=== PATIENT | female | born 1960 | race Asian ===

== ENCOUNTER 2016-07-14 10:48 | Inpatient (IN) | payer OTHER ==
--- NOTE | 2016-07-09 19:16 | PCM.HPSURG ---
Subjective Date of Service: Jul 06, 2016 Referring Provider: Admitting Physician: Primary Care Physician: Robbie Jean MD Attending Physician: Mode Ferguson MD Chief Complaint SEE BELOW History of Present Illness Patient: Khoa Scott Date of : 1960 Visit Type: Pre Op Visit Date: 07/06/2016 09:45 AM This 56 year old female presents for Preop C4-7 ACDF, Cage, BMA and & Plating. History of Present Illness: 1. Preop C4-7 ACDF, Cage, BMA, & Plating Khoa scott is a 56 year old female referred by Neurologist Dr. Channing Bradford MD with Primary Care Provider (PCP) Dr. Parrish Jean DO, who presents today's date 07/06/2016 for a rescheduled surgery & repeat preoperative type of appointment concerning the decision for surgery involving C4-5, C5-6, & C6-7 anterior cervical discectomy and fusion, with cages, iliac crest bone marrow aspiration, & anterior cervical plating from C4-7 secondary to a diagnosis of cervical stenosis of the spinal canal with related complaints of severe, intractable, and debilitating headache, neck spasm referred to the lower back, & pain radiating to the bilateral shoulders, upper & lower extremities worse on the right side with numbness, paresthesias, dysesthesias, cramping, & weakness; including related difficulty with ambulation, balance, coordination, fine motor manipulation, unsteadiness of gait, & bladder spasticity. The patient was last seen for preoperative appointment on 06/03/2016, after which she developed acute sinusitis with shortness of breath, asthma exacerbation, & consequently her previous surgery was canceled. The patient was then treated by her PCP & medically authorized to reschedule for surgery. The patient was last seen by Dr. Moed Ferguson M.D. on 05/19/2016 presenting with symptomatic cervical myeloradiculopathy as before. She was seen prior for Neurosurgical consultation by Gregorio Kuo PA-C on 05/01/2016 with chief complaints of constant frequency taking & throbbing headache, neck spasm referred to the lower back, & pain radiating diffusely to the bilateral shoulders, upper & lower extremities worse on the right side with numbness, paresthesias, dysesthesias, cramping, & weakness; aggravated by fixed prolonged cervical flexion or extension positioning & improved only transiently with rest , activity modification, medical management & therapeutic modalities; worsening over the last several years. The patient also complains a related difficulty with ambulation, balance, coordination, fine motor manipulation, unsteadiness of gait, & bladder spasticity. Incidentally, the has also received interventional treatment from Dr. Bart Schumacher M.D., PhD for lumbar facet arthropathy, sacroiliitis, & piriformis syndrome with limited relief. According to Dr. Mode Ferguson M.D. the patient has an MRI spine that demonstrated cervical spondylosis with disc & osteophyte protrusion causing spinal stenosis with spinal cord compression at C4-5, C5-6, & C6-7. He also reported bilateral foraminal narrowing at multiple levels. Consequently the patient has symptomatic cervical spinal stenosis causing myelopathy; therefore neurosurgical decompression, fusion, & instrumented stabilization is indicated. Dr. Ferguson & the patient discussed all the risks and benefits associated with procedure as well as reasonable expectations with regards to surgical outcomes & the patient elected to proceed with surgery as planned. The patient denies any related complete or acute loss of control of bowel or bladder function, saddle paresthesia or anesthesia. The patient has a reported pertinent past medical, surgical, family & social history for right shoulder surgery for rotator cuff repair & acromioplasty, tubal ligation (involving difficult postoperative anesthesia) , & lump removal, asthma (controlled), thyroid dysfunction, osteoarthritis, fibromyalgia, history of diarrhea/constipation, nocturia, stress incontinence, chronic joint pain, & frequent headaches with no other than above known positive history &/or review of all other organ systems. The patient's related complaints have been a serious detriment to their happiness and activities of daily living. Having failed conservative treatment the patient presents today for their decision for surgery appointment involving C4-5, C5-6, & C6-7 anterior cervical discectomy and fusion, with cages, iliac crest bone marrow aspiration, & anterior cervical plating from C4-7 for treatment of cervical stenosis of the spinal canal; related to severe, intractable, and debilitating headache, neck spasm referred to the lower back, & pain radiating to the bilateral shoulders, upper & lower extremities worse on the right side with numbness, paresthesias, dysesthesias, cramping, & weakness; including related difficulty with ambulation, balance, coordination, fine motor manipulation, unsteadiness of gait, & bladder spasticity. The procedure is scheduled to be performed by Dr. Mode Ferguson M.D. on 07/14/2016 ANESTHESIA NOTE: Anesthesia preoperative consultation requested for review of the patient's PCP office medical clearance for surgery. The patient reports significant nausea with narcotics although she has a fatty liver & elevated liver enzymes therefore low-dose oxycodone will be used & treated with antiemetics as needed. She will also be evaluated postoperatively by Respiratory Therapy because of mild regular asthma. Problem List: Problem Description Asthma exacerbation Medical/Surgical/Interim History Reviewed, no change. Last detailed document date:07/06/2016. Family History: Reviewed, no changes. Last detailed document date:07/06/2016. Social History (Reviewed, updated) 07/06/2016 Tobacco use reviewed. Preferred language is German. The patient does not need an invoice classification clerk. Smoking status: Former smoker. Smoking Status Use Status Type Smoking Status Years Used Total Pack Years yes Cigarette Former smoker Cessation Type Date Quit Longest Tobacco Free Cessation Method Cigarette 04/12/2012 CAFFEINE The patient uses caffeine: soda and coffee.. Allergies: Ingredient Reaction Medication Name Comment SHELLFISH DERIVED lips/mouth itchy AMPICILLIN hives, rash Reviewed, no changes. Review of Systems System Neg/Pos Details Neuro Positive Headache. Constitutional Negative Chills and fever. GI Negative Abdominal pain, constipation, diarrhea, nausea and vomiting. MS Negative Back pain, bone/joint symptoms and muscle weakness. Valentino/Lymph Negative Blood clots. Neuro Negative Dizziness and seizures. Negative Dysuria, urge incontinence and urinary incontinence. Respiratory Negative Dyspnea, apnea and wheezing. Eyes Negative Double vision and vision loss. Psych Negative Anxiety and depression. Integumentary Negative Mrsa and rash. Endocrine Negative Weight gain and weight loss. Cardio Negative Chest pain, irregular heartbeat/palpitations, leg swelling and pacemaker. ENMT Negative Hearing loss. Vital Signs Height Time ft in cm Last Measured Height Position % 9:34 AM 5.0 1.00 154.94 05/19/2016 Weight/BSA/BMI Time lb oz kg Context % BMI kg/m2 BSA m2 9:34 AM 150.00 68.039 dressed with shoes 28.34 Blood Pressure Time BP mm/Hg Position Side Site Method Cuff Size 9:34 AM 115/68 sitting left wrist automatic adult Temperature/Pulse/Respiration Time Temp F Temp C Temp Site Pulse/min Pattern Resp/ min 9:34 AM 98.6 37.0 88 regular Pain Scale Time Pain Score Method 9:34 AM 6/10 Numeric Pain Intensity Scale Measured By Time Measured by 9:34 AM German Davila MA Screening Summary:o Pain is described as 6/10. Evaluated pain score with Numeric Pain Intensity Scale. The following were reviewed: tobacco use, alcohol use and caffeine use Physical Exam Exam Findings Details Comments WD/WN, female who is AO x 3, cooperative,& appears to be in NAD w/ language & speech that is intact & fluent. There is no evidence of recent or remote memory impairment. The patient's knowledge is appropriate for age & level of education w/ a pleasant affect & euthymic mood. Ambulates w/ no difficulty. NC/AT, PERRL, EOMI, w/o facial droop, hearing grossly intact, nostrils patent, oral cavity and pharynx normal. Neck supple, w/o LAD or thyromegaly. Heart reveals RRR w/o audible murmurs Lungs CTAB Abdomen is NT/ND Cervical range of motion is moderately restricted in all directions. Neck nontender to palpation. Motor strength 5/5 bilateral deltoid, bicep, tricep, hand community health counselor, hand intrinsics. Reflexes 2+ bilateral biceps, triceps, brachioradialis, knee jerks, ankle jerks. No ankle clonus. Negative Ortiz's reflex. Sensation diminished pinprick in the radial aspect of the forearms and thumb and first 2 fingers of both hands bilaterally. Assessment/Plan # Detail Type Description 1. Assessment Cervical stenosis of spinal canal (M48.02). 2. Assessment Preoperative examination (Z01.818). Patient Plan We including your Attending Surgeon have discussed the risks and benefits associated your scheduled procedure which you have verbally acknowledged understanding including but not limited to the possibility of an outcome that we are unable to predict or was not mentioned. 1. You are scheduled for a C4-5, C5-6, & C6-7 anterior cervical discectomy and fusion, with cages, iliac crest bone marrow aspiration, & anterior cervical plating with Dr. Mode Ferguson M.D. at [facility] on 07/14/2016. 2. Check in time is 11:00 AM. Also please ignore instructions below if told otherwise by your preadmission nurse or if you do not take the medications listed below. 3. Nothing to eat after midnight the night before surgery. You may take all of your "approved" medications with small sips of water. Remember to take your a.m. hypertension medication if it is a beta jolene and ends in "olol. Otherwise ask your doctor if you need to hold your a.m. hypertension medication. 4. No aspirin, ibuprofen, Naprosyn, or other NSAIDs starting 7 days prior to surgery. 5. Please stop Warfarin/Coumadin or other blood thinners such as Plavix, Aggrenox, or Xarelto 7 days prior to your surgical procedure and follow specific instructions from your prescribing provider. 6. Please stop Lovenox bridging in the morning one day prior to procedure. 7. Please stop Suboxone/Buprenorphine at least 4 days prior to procedure. 8. Go to the hospital today to get her preoperative testing done. Take the order form to the surgery desk on the second floor of the hospital, [facility] (main entrance next to the emergency entrance). I will notify you if there is any test results that require further workup prior to surgery. 9. Follow the instructions you were given today, use the cleansing cloths the night before as well as the morning of her surgery. 10. If you are prescribed inhalers, CPAP or BiPAP machines you use at home bring along with you to the hospital. 11. ONLY If you take medications for Diabetes: If you have an insulin pump continue lowest (typically night-time) basal rate into the a.m. If you do not have a pump check h your a.m. blood sugar and hold insulin if BS less than 100. If you are taking long-acting, intermediate acting (NPH) or 70/30 preparation : Take half on day of procedure. If you are taking ultra long-acting insulin such as glargine, Lantus either at night or in the a.m. continue as scheduled ( including day of surgery). If you take short acting regular insulin (insulin not delivered via pump) discontinue on day of procedure. 12. Please call if you have any questions before your surgery: [phone]. Today's instructions/counseling include(s) Pre-operative instructions given to the patient and or legal bilingual sales representative(s) orally and in writing. 13. Our office will contact you if there are any test results that require further workup prior to surgery. Provider Plan We including your Attending Surgeon have discussed the risks and benefits associated your scheduled procedure which you have verbally acknowledged understanding including but not limited to the possibility of an outcome that we are unable to predict or was not mentioned. 1. You are scheduled for a C4-5, C5-6, & C6-7 anterior cervical discectomy and fusion, with cages, iliac crest bone marrow aspiration, & anterior cervical plating with Dr. Mode Ferguson M.D. at [facility] on 07/14/2016. 2. Check in time is 11:00 AM. Also please ignore instructions below if told otherwise by your preadmission nurse or if you do not take the medications listed below. 3. Nothing to eat after midnight the night before surgery. You may take all of your "approved" medications with small sips of water. Remember to take your a.m. hypertension medication if it is a beta jolene and ends in "olol. Otherwise ask your doctor if you need to hold your a.m. hypertension medication. 4. No aspirin, ibuprofen, Naprosyn, or other NSAIDs starting 7 days prior to surgery. 5. Please stop Warfarin/Coumadin or other blood thinners such as Plavix, Aggrenox, or Xarelto 7 days prior to your surgical procedure and follow specific instructions from your prescribing provider. 6. Please stop Lovenox bridging in the morning one day prior to procedure. 7. Please stop Suboxone/Buprenorphine at least 4 days prior to procedure. 8. Go to the hospital today to get her preoperative testing done. Take the order form to the surgery desk on the second floor of the hospital, [facility] (main entrance next to the emergency entrance). I will notify you if there is any test results that require further workup prior to surgery. 9. Follow the instructions you were given today, use the cleansing cloths the night before as well as the morning of her surgery. 10. If you are prescribed inhalers, CPAP or BiPAP machines you use at home bring along with you to the hospital. 11. ONLY If you take medications for Diabetes: If you have an insulin pump continue lowest (typically night-time) basal rate into the a.m. If you do not have a pump check h your a.m. blood sugar and hold insulin if BS less than 100. If you are taking long-acting, intermediate acting (NPH) or 70/30 preparation : Take half on day of procedure. If you are taking ultra long-acting insulin such as glargine, Lantus either at night or in the a.m. continue as scheduled ( including day of surgery). If you take short acting regular insulin (insulin not delivered via pump) discontinue on day of procedure. 12. Please call if you have any questions before your surgery: [phone]. Today's instructions/counseling include(s) Pre-operative instructions given to the patient and or legal bilingual sales representative(s) orally and in writing. 13. Our office will contact you if there are any test results that require further workup prior to surgery. The patient's history and examination as well as radiological findings were reviewed with Mode Ferguson M.D. and conveyed the patient in detail. The findings are consistent with cervical stenosis of the spinal canal and are most likely the cause of the patient's severe, intractable, and debilitating headache, neck spasm referred to the lower back, & pain radiating to the bilateral shoulders, upper & lower extremities worse on the right side with numbness, paresthesias, dysesthesias, cramping, & weakness; including related difficulty with ambulation, balance, coordination, fine motor manipulation, unsteadiness of gait, & bladder spasticity. The patient has failed extensive conservative treatment for this condition. The treatment options were discussed with the patient. The options include attempt to live with the condition, reattempt conservative treatment, try a pain management intervention / injection or consider a surgical intervention. We are not extremely optimistic that further conservative treatment, pain management intervention and/or injection will adequately resolve the patient's symptoms of severe, intractable, and debilitating headache, neck spasm referred to the lower back, & pain radiating to the bilateral shoulders, upper & lower extremities worse on the right side with numbness, paresthesias, dysesthesias, cramping, & weakness; including related difficulty with ambulation, balance, coordination, fine motor manipulation, unsteadiness of gait, & bladder spasticity. Therefore we recommend C4-5, C5-6, & C6-7 anterior cervical discectomy and fusion, with cages, iliac crest bone marrow aspiration, & anterior cervical plating from C4-7. The patient was provided/offered educational materials pertaining to their diagnosis and the above discussed procedure. We discussed the risks and benefits associated with this surgery. A spine model was used to explain the nature of this type of surgery. The risk of the required anesthesia was also mentioned including but not limited to organ failure such as heart attack, pneumonia and stroke even . The risk of this type of surgery was also mentioned. Including but not limited to an unsuccessful outcome, residual symptoms, odynophagia, dysphasia or sore throat, referred or radiating posterior spinal myofascial inflammatory pain or spasm, post operative instability, instrumentation failure, sensory changes, blood loss, blood clots, wound infection, spinal cord or nerve damage, CSF or lymph leak, damage to neighboring structures such as the recurrent laryngeal nerve, perforation of the esophagus or trachea, pseudoarthrosis, adjacent level disease , contraindication to MRI, Gillian's Syndrome, vision loss, voice change, resulting in temporary or permanent dysfunction, even disability, paralysis, and . The recovery of this type of surgery was also mentioned. This includes but is not limited to reasonable expectations for the treatment of myelopathy involving the surgical decompression of the cervical spinal cord; which will stop the progression of the patient's condition but cannot guarantee improvements in any associated physical complaints. The patient verbalized understanding all the risks and benefits, knowing that it is impossible to predict or guarantee every surgical outcome; and would like to proceed with the above discussed procedure anyways. Surgery is scheduled for 07/14/2016 The standard [facility] preoperative screening tests, medicine restrictions, and logistical protocols apply. Any preoperative testing is within normal limits to undergo the above discussed procedure unless otherwise noted in the medical record. ANESTHESIA NOTE: Anesthesia preoperative consultation requested for review of the patient's PCP office medical clearance for surgery. The patient reports significant nausea with narcotics although she has a fatty liver & elevated liver enzymes therefore low-dose oxycodone will be used & treated with antiemetics as needed. She will also be evaluated postoperatively by Respiratory Therapy because of mild regular asthma. Medications (added, continued or stopped this visit): Start Date Medication Directions Stop Date 06/11/2016 Aerochamber MV spacer Use with your albuterol inhaler 06/11/2016 benzonatate 200 mg capsule take 1 capsule by oral route 3 times every day as needed for cough cetirizine 10 mg tablet take 1 tablet by oral route every day 06/03/2016 docusate sodium 250 mg capsule take 1 capsule by oral route 2 times every day Dulera 200 mcg-5 mcg/actuation HFA aerosol inhaler inhale 2 puff by inhalation route 2 times every day in the morning and evening fluoxetine 10 mg capsule take 1 capsule by ORAL route every day fluticasone 50 mcg/actuation nasal spray,suspension spray 1 spray by intranasal route every day in each nostril 08/16/2015 gabapentin 300 mg capsule take 3 capsule by oral route 2 times every day levothyroxine 50 mcg tablet take 1 tablet by oral route every day Maxalt 10 mg tablet take 1 tablet by oral route once, may repeat at 2 hour intervals; do not exceed 30 mg in 24 hours montelukast 10 mg tablet take 1 tablet by oral route every day in the evening 06/15/2016 [place] 10 mg-325 mg tablet take 0.5-2 tablet(s) by oral route every 4 - 6 hours as needed for pain 01/03/2016 ondansetron 8 mg disintegrating tablet take 1 tablet by oral route every 8 hours as needed for nausea 06/15/2016 oxycodone 5 mg tablet take 0.5-2Tablet(s) by oral route every 4-6 hours as needed for pain ProAir HFA 90 mcg/actuation aerosol inhaler inhale 2 puff by inhalation route every 4 - 6 hours as needed Refresh Plus 0.5 % eye drops in a dropperette use as needed 10/25/2015 Robaxin-750 750 mg tablet Take 1 tablet orally three times a day Spiriva with HandiHaler 18 mcg and inhalation capsules inhale 1 capsule by inhalation route every day 05/20/2016 sumatriptan 6 mg/0.5 mL subcutaneous pen injector inject 0.5 milliliter by subcutaneous route once once; may repeat in 1 hour if pain returns /increases in severity; (max2 doses/24 hours) topiramate 50 mg tablet take 1 tablet by oral route 2 times every day 06/15/2016 Valium 5 mg tablet take 1 - 2 Tablet by oral route every 8 hours for spasm 01/03/2016 zonisamide 25 mg capsule take 2 Capsule by oral route 2 times every day Counseling/Educational Factors: Counseling / educational factors reviewed. Counseling / educational factors reviewed. This is a visit of 60 minutes. 50 minutes were spent counseling. The patient was checked out at 10:11 AM. This document may have been created using voice recognition software or other electronic means and may contain inadvertent field service supervisor errors. Provider: Gregorio POND 07/06/2016 10:23 AM Document generated by: Gregorio Kuo 07/06/2016 10:23 AM CC Providers: Parrish Jean [address] [place] [address] [address] [place] [address] w w cristobal Rae s r c l i n i c s . o r g Allergy Allergies: Coded Allergies: ampicillin (Verified Allergy, Severe, HIVES,RASH, 07/08/16) shellfish derived (Verified Allergy, Severe, LIPS/MOUTH ITCHY (TOPICAL OK PER PT), 07/08/16) peanut (Verified Allergy, Unknown, UNKNOWN, 07/08/16) PMH HEENT History History of ENT Problems?: Yes HEENT History: Positive for:: Sinus Problem (SEASONAL ALLERGIES S/P SINUS SURGERY) Cardiovascular History History of Heart Problems?: No Cardiovascular History: Denies:: Heart Murmur Hypertension Valvular Heart Disease Respiratory History of Respiratory Problem: Yes Respiratory History: Positive for:: Asthma COPD Use of Inhalers / NEBS Denies:: Use of C-PAP Machine (SNORES SLEEP STUDY 11/2014 WNL) Neurological History Hx Neurologic Problems?: Yes Neurological History: Positive for:: Headaches Gastrointestinal History HX of GI Problems?: Yes Gastrointestinal History: Positive for:: Gall Bladder Disease (S/P DANICA) Other GI Pertinent History: C/OF INTERMITTANT DIARRHEA & CONSTIPATION Genitourinary History Hx of Gu Problems?: Yes Female/Male History Reproductive History Female: Positive for: Problems with Breasts? (S/P RT BREAST LUMPECTOMY) Denies: Currently ? (S/P BTL) Skin History Skin History: Denies:: History Skin Disorders? Pressure Ulcers Musculoskeletal History Hx Musculoskeletal Problems?: Yes Musculoskeletal History: Positive for:: Fibromyalgia Musculoskeletal Trauma (S/P RT SHOULDER RPR) Osteoarthritis Denies:: Back Injury (C/OF NECK PAIN) Psycho Social History Hx of Psycho/Social Problems?: Yes Psycho Social History: Positive for:: Anxiety Hx Depression Other History Hx Any Other Health Problems?: Yes Other History: Positive for:: Thyroid Disease Denies:: Cancer Endocrine Disease Hospitalization Diabetes: No Gregorio Kuo PA-C Jul 09, 2016 19:16
[2016-07-14] VITALS (9 sets, daily range): BP systolic 102–116; BP diastolic 60–72; PULSE 85–92; RESP 10–16; O2SAT 94–99
[~2016-07-14] VITALS: Ht 154.9 cm; Wt 67.1 kg
[~2016-07-14 10:48] MED LIST: ALBU8.5H2 INHALATION; BENZ200C44 PO; Bacitracin 50,000 unit Inj IRRIGATION ONE; CETI-343 PO; Clindamycin 900 mg/50 mL D5W Premix IV ONE; DIAZ5TAB PO; DOCU250C2 PO; FLUO10CA20 PO; FLUT9.9S NS; GABA-502 PO; HYDR-3740 PO; LEVO50TA6 PO; Lactated Ringer's 1,000 ML IV SCH; METH-313 PO; MOME13HF2 IH; MONT10TA23 PO; OXYC5CAP4 PO; REFRESH PLUS AFFECT_EYE; RIZA10TA26 PO; SUMA6PEN SQ; TIOT18CA3 IH; TOPI50TA88 PO; Thrombin Powder 5,000 Unit TOPICAL ONE; ZOF8 PO; ZONI50CA3 PO
[2016-07-14] MEDS ORDERED: Clindamycin 900 mg/50 mL D5W Premix IV ONE (11:48)
[2016-07-14] MEDS ORDERED: Thrombin Powder 5,000 Unit TOPICAL ONE ×2 (13:58→16:05)
[2016-07-14] MEDS ORDERED: Bacitracin 50,000 unit Inj ONE (13:59)
--- NOTE | 2016-07-14 14:07 | PCM.HPANE ---
Patient Data Date of Service: Jul 14, 2016 Surgeon Admitting Provider: Attending Provider:Mode Ferguson MD Primary Care Physician:Robbie Jean MD Other Provider:Vane Qiu Anesthesia Reason for Visit Cervical Stenosis Of Spinal Canal Ht/WT & BMI Height (Feet): 5 Height (Inches): 1 Weight (Kilograms): 67.1 Body Mass Index 27.00 Allergies Coded Allergies: ampicillin (Verified Allergy, Severe, HIVES,RASH, 07/08/16) shellfish derived (Verified Allergy, Severe, LIPS/MOUTH ITCHY (TOPICAL OK PER PT), 07/08/16) peanut (Verified Allergy, Unknown, UNKNOWN, 07/08/16) Past Anesthesia History Anesthesia History: Positive for:: Anesthesia Reactions ("DIFFICULT" POSTOP ANESTHESIA AFTER BTL; PONV), Denies:: Malignant Hyperthermia Diabetes History Hx Diabetes?: No Current Bedside Blood Glucose: 126 MRSA MRSA: No Medications Reported Medications Zonisamide 50 Mg Btkyvqz45 Mg PO BID 07/08/16 Diazepam (Valium)5 Mg Tablet5-10 Mg PO TID PRN PRN 30 Days Ref 0 07/08/16 Sumatriptan Succinate (Imitrex)6 Mg/0.5 Ml Pen.injctr6 Mg SQ PRN 07/08/16 Tiotropium Azalea (Spiriva)18 Mcg Cap.w.dev18 Mcg IH DAILY #1 PKG Ref 0 07/08/16 [Refresh Plus] No Conflict Check1-2 Drp AFFECT_EYE PRN 07/08/16 Albuterol HFA (Proair HFA)8.5 Gm Hfa.aer.ad2 Puffs INHALATION Q4H PRN PRN #1 INHALER 07/08/16 oxyCODONE 5 Mg Capsule2.5-10 Mg PO Q4H PRN For Pain Ref 0 07/08/16 Ondansetron (Zofran)8 Mg Tablet8 Mg PO Q8H PRN For Nausea 07/08/16 Montelukast 10 Mg Wntbuu21 Mg PO HS Ref 0 07/08/16 Rizatriptan (Maxalt)10 Mg Ydjsby85 Mg PO PRN MR IN 2HR INTERVALS 07/08/16 Levothyroxine 50 Mcg Mxighe09 Mcg PO DAILY Ref 0 07/08/16 Gabapentin 300 Mg Qpvtpox216 Mg PO BID Ref 0 07/08/16 Fluticasone Propionate (Flonase Allergy Relief)50 Mcg/Actuation Haskins.susp9.9 Ml NS DAILY 07/08/16 Fluoxetine 10 Mg Eorlthl44 Mg PO DAILY Ref 0 07/08/16 Mometasone/Formoterol (Dulera 100 Mcg/5 Mcg Inhaler)13 Gm Hfa.aer.ad2 Puffs IH BID 07/08/16 Docusate Sodium 250 Mg Rqrmbat169 Mg PO BID PRN For Constipation Ref 0 07/08/16 Cetirizine HCl (24Hour Allergy)10 Mg Pzuxti16 Mg PO DAILY 07/08/16 Benzonatate 200 Mg Knonaog770 Mg PO TID PRN PRN 07/08/16 Discontinued Reported Medications Topiramate 50 Mg Diuvhj44 Mg PO BID Ref 0 07/08/16 Methocarbamol (Robaxin-750)750 Mg Wrbhzc558 Mg PO TID 07/08/16 Hydrocodone-Acetaminophen 10-325 mg 1 Each Tablet0.5-2 Tablet PO Q4H PRN For Pain Ref 0 07/08/16 History History of ENT Problems?: Yes HEENT History: Positive for:: Sinus Problem (SEASONAL ALLERGIES S/P SINUS SURGERY) Denture Type: Full- Upper Partial- Lower Hx of Heart Problems?: No Cardiovascular History: Denies:: Heart Murmur Hypertension Valvular Heart Disease Hx of Respiratory Problem?: Yes Respiratory History: Positive for:: Asthma COPD Use of Inhalers / NEBS Denies:: Use of C-PAP Machine (SNORES SLEEP STUDY 11/2014 WNL) Hx Neurologic Problems?: Yes Neurological History: Positive for:: Headaches Hx of GI Problems?: Yes Gastrointestinal History: Positive for:: Gall Bladder Disease (S/P DANICA) Other GI Pertinent History: C/OF INTERMITTANT DIARRHEA & CONSTIPATION Hx of Problems?: Yes Female Hx: Positive for:: Problems with Breasts? (S/P RT BREAST LUMPECTOMY) Denies:: Currently (S/P BTL) Skin History: Denies:: History Skin Disorders? Pressure Ulcers Hx Musculoskeletal Problems?: Yes Musculoskeletal History: Positive for:: Fibromyalgia Musculoskeletal Trauma (S/P RT SHOULDER RPR) Osteoarthritis Denies:: Back Injury (C/OF NECK PAIN) Hx of Psycho/Social Problems?: Yes Psycho Social History: Positive for:: Anxiety Hx Depression Hx Surgeries?: Yes (RT SHOULDER RPR,BTL,DANICA,RT BREAST LUMPECTOMY,SINUS SURGERY) Hx Any Other Health Problems?: Yes Other History: Positive for:: Thyroid Disease Denies:: Cancer Endocrine Disease Hospitalization Hx Diabetes: NoBedside Blood Glucose: 126 Have You Smoked inLast 12 mo: No Stop/Bang Treated for Sleep Apnea?: No Do You Have a CPAP Machine?: No S-Snoring: Do You Snore Loudly: Yes T-Tired: feel tired, fatigued: Yes O-Obsered: Observed not breath: No P-Blood Pressure: treated: No B- Body Mass Index > 35 kg/m2: No A- Age over 50: Yes N- Neck Large Circumference: No G- Gender Male: No JEWEL Total Score: 3 JEWEL Risk Assessment: Low Risk, <3 Yes Risk Assessment Category Category 1A: Patient has history of documented sleep apnea, and HAS NOT received any narcotic, sedative or anesthesia administration during this stay. Category 1B: Patient has history of documented sleep apnea, and HAS received any narcotic , sedative or anesthesia administration during this stay Category 2: Patient has SUSPECTED Obstructive Sleep Apnea, and HAS received any narcotic , sedative or anesthesia administration during this stay. Category 3: Patient has SUSPECTED Obstructive Sleep Apnea and HAS NOT received narcotic, sedative or anesthesia administration during this stay. Category 4: Outpatient in Procedural Areas with known sleep apnea or who screen positive for High Risk via the STOP/BANG questionnaire. Exam Exam Vital Signs Vital Signs Date Time Temp Pulse Resp B/P Pulse Ox O2 Delivery O2 Flow Rate FiO2 07/14/16 11:22 90 16 116/66 96 Room Air General Appearance: Alert, Oriented X3, Cooperative, No Acute Distress HEENT/AIRWAY: MP 2 (Upper, lowe plate) Lungs: Clear to Auscultation, Diminished Heart: Exam Unremarkable, Regular Rate/Rhythm, No Murmurs/Rubs/Gallops Meds/Labs/Diagnostics Bedside Blood Glucose: 126 Plan Impression Patient chart reviewed, patient interviewed and anesthestic plan with risks, benefits, and alternatives discussed, and informed consent obtained. NPO Status: 0700 CLEARS ASA Physical Status: ASA3 Severe Disease Anesthetic Plan: GA Bene/Risks/Altern/Consents: Yes HP Complete Prior to Induction: Yes Gustabo Oliva DO Jul 14, 2016 14:07
[2016-07-14] MEDS ORDERED: Lactated Ringer's 1,000 ML IV SCH (14:26)
[2016-07-14] MEDS ORDERED: Lactated Ringer's 500 ML IV PRN (14:26)
[2016-07-14] MEDS ORDERED: fentaNYL-PF 50 mCg/mL 2 mL Inj IVPUSH PRN (14:30)
[2016-07-14] MEDS ORDERED: Atropine 0.4 mg/mL Inj IVPUSH PRN (14:30)
[2016-07-14] MEDS ORDERED: Ondansetron 2 mg/mL 2 mL Inj IVPUSH PRN ×2 (14:30→17:20)
[2016-07-14] MEDS ORDERED: HYDROmorphone 1 mg/mL Inj IVPUSH PRN ×2 (14:30→17:20)
[2016-07-14] MEDS ORDERED: Labetalol 5 mg/mL 4 mL Inj IV PRN (14:30)
[2016-07-14] MEDS ORDERED: MetoCLOpramide 5 mg/mL 2 mL Inj IVPUSH PRN ×2 (14:30→17:20)
[2016-07-14] MEDS ORDERED: Dexamethasone 4 mg/mL Inj IVPUSH PRN (14:30)
[2016-07-14] MEDS ORDERED: Phenylephrine 10,000 mCg/mL Inj IVPUSH PRN (14:30)
[2016-07-14] MEDS ORDERED: EPHEDrine Sulfate 50 mg/mL Inj IVPUSH PRN (14:30)
[2016-07-14] MEDS ORDERED: Bupivacaine-MPF 0.5% W/EPI 30 mL Inj INFILTRATE ONE (14:59)
--- NOTE | 2016-07-14 15:08 | DRSVH ---
PROCEDURE: X-RAY CERVICAL SPINE, 1 VIEW INDICATIONS: CERVICAL FUSION IN OR-INTRAOPERATIVE LOCALIZATION TECHNIQUE: Single lateral view of the cervical spine acquired. COMPARISON: None. FINDINGS: An intraoperative lateral view of the cervical spine demonstrates a surgical probe anterio r to the interspace of C4-C5. IMPRESSION: Surgical probe at the level of C4-C5. Dictated by: Shirley Webber M.D. on 07/14/2016 at 15:04 Approved by: Shirley Webber M.D. on 07/14/2016 at 15:07
[2016-07-14] MEDS ORDERED: Bacitracin 50,000 unit Inj IRRIGATION ONE (15:25)
--- NOTE | 2016-07-14 17:06 | DRSVH ---
PROCEDURE: X-RAY CERVICAL SPINE, 1 VIEW INDICATIONS: INTRAOPERATIVE IMAGE TECHNIQUE: Single lateral view of the cervical spine acquired. COMPARISON: Localization lateral view 07/14/2016 FINDINGS: Bones: Compared to earlier exam, surgical changes now include anterior discectomies at C4-5, C5-6 and C6-7, with disc spacers in place an anterior plate with fixation screws bridging C4-C7. The degenera tive disc disease at C3-4 is again noted. Support apparatus present. Soft tissues: No prevertebral soft tissue swelling. IMPRESSION: Intraoperative for immediately postoperative surgical changes of the cervical spine. Repo rt call was attempted through the surgical department at 1700 hrs. on 07/14/2016 Dictated by: Brandin Ochoa M.D. on 07/14/2016 at 16:59 Approved by: Brandin Ochoa M.D. on 07/14/2016 at 17:04
[2016-07-14] MEDS ORDERED: Lactated Ringer's 1,000 ML IV ONE (17:09)
[2016-07-14] MEDS ORDERED: Albuterol 2.5 mg/3 mL Inhalation Solution NEB PRN (17:15)
[2016-07-14] MEDS ORDERED: Senna-Docusate 8.6-50 mg Tablet PO PRN (17:20)
[2016-07-14] MEDS ORDERED: Polyethylene Glycol (PEG) 17 Gm Powder PO PRN (17:20)
[2016-07-14] MEDS ORDERED: Benzocaine-Menthol Lozenge 2/Pkg PO PRN (17:20)
[2016-07-14] MEDS ORDERED: Magnesium Hydroxide 10 mL Oral Concentration PO PRN (17:20)
[2016-07-14] MEDS ORDERED: Sodium Biphos-Phos 133 mL Enema RECTAL PRN (17:20)
[2016-07-14] MEDS ORDERED: Benzocaine (Hurricaine) 20% Unit-Dose Spray MUC_MEMBRM PRN ×2 (17:20→17:30)
[2016-07-14] MEDS ORDERED: hydrOXYzine Pamoate 25 mg Capsule PO PRN (17:20)
[2016-07-14] MEDS ORDERED: fentaNYL-PF 50 mCg/mL 2 mL Inj ONE (17:52)
[2016-07-14] MEDS ORDERED: Neostigmine 1 mg/mL 10 mL Inj ONE (17:52)
[2016-07-14] MEDS ORDERED: Propofol 10,000 mCg/mL 20 mL Inj ONE (17:52)
[2016-07-14] MEDS ORDERED: Rocuronium 10 mg/mL 5 mL Inj ONE (17:52)
[2016-07-14] MEDS ORDERED: Ondansetron 2 mg/mL 2 mL Inj ONE (17:52)
[2016-07-14] MEDS ORDERED: Glycopyrrolate 0.2 MG/ML 1mL Inj ONE (17:52)
--- NOTE | 2016-07-14 18:03 | PCM.ANEP1 ---
Post Anesthesia Phase 1 PACU Phase 1 Assessment Date of Service: Jul 14, 2016 Vital Signs Vital Signs Date Time Temp Pulse Resp B/P Pulse Ox O2 Delivery O2 Flow Rate FiO2 07/14/16 17:43 36.9 85 12 102/63 95 Nasal Cannula 2 07/14/16 17:23 85 12 105/63 95 Nasal Cannula 3 07/14/16 17:14 89 12 105/62 94 Nasal Cannula 3 07/14/16 17:10 92 10 108/60 94 Nasal Cannula 3 07/14/16 17:05 90 108/61 95 Nasal Cannula 3 07/14/16 17:00 36.8 92 12 112/67 98 Simple Mask 8 07/14/16 11:22 90 16 116/66 96 Room Air Anesthetic Administered: GA Level of Alertness: Awake, talking [place]'s with Equal Strength: Yes Pain: No Nausea or Vomiting: No Oxygen Delivery: Simple Mask (6l mask) Lungs: Clear to Auscultation, Diminished Gustabo Oliva DO Jul 14, 2016 18:03
--- NOTE | 2016-07-14 18:41 | PCM.ANEP2 ---
Post Anesthesia Evaluation ASA/CMS Post Anesthesia Date of Service: Jul 14, 2016 VS in Patient's Normal Range?: Yes Resp Stable; Airway Patent?: Yes CV Function & Hydration Stable: Yes Mental Status Recovered?: Yes Pain control Satisfactory?: Yes N/V Control Satisfactory?: Yes Additional Comments Sensorimotor function at baseline. Gustabo Oliva DO Jul 14, 2016 18:41
--- NOTE | 2016-07-14 19:59 | OP ---
[address] [address] OPERATIVE REPORT PATIENT: ESME GARCIA : 1960 MR#: [id number] ADMIT: 07/14/2016 JOB ID: [id number] DATE OF SURGERY: 07/14/2016 SURGEON: Mode Ferguson MD CITY TREASURER: GILDA Bhandari. Information Systems Auditor provided irrigation, retraction and suction and was medically necessary. PREOPERATIVE DIAGNOSIS(ES): Cervical stenosis with myelopathy, C4-5, C5-6 and C6-7. POSTOPERATIVE DIAGNOSIS(ES): Cervical stenosis with myelopathy, C4-5, C5-6 and C6-7. PROCEDURES: 1. C4-5, C5-6 and C6-7 anterior cervical diskectomy and fusion. 2. Peek cages at C4-C5, C6, C7. 3. Anterior cervical plate with NuVasive archon plate. 4. [place] iliac crest bone marrow. 5. Osseous cell plus allograft microdissection. Attending surgeon Dr. Dena Ferguson assistants Gregorio rascon and provided irrigation retractor and a section was medically necessary. OPERATIVE PROCEDURE: The patient was brought to the operating room. General anesthesia with oral intubation was administered. Patient was positioned supine with a neck roll, head supported on a full donut. The anterior aspect of the neck and right anterior iliac crest were prepped and draped in a sterile fashion. Time-out was performed. IV antibiotics were given. Compression boots were applied to the legs. was in place. A horizontal incision was made from the midline towards the right just below the cricoid cartilage on the right side of the neck approximately 5 cm length. Platysma muscles were dissected off of the overlying tissue and incised horizontally. The sternocleidomastoid was from the strap muscles and the space was developed until the anterior aspect of the cervical spine was encountered. The longus coli muscles were dissected off the spine from C4 down to C7 and x-ray was taken with the needle in the C4-5 disk to confirm the level. The anterior osteophytes were removed with bone rongeur and a deep self-retaining retractor was placed. The C4-5 disk was incised with a scalpel. Diskectomy was carried out with curettes and pituitary rongeurs. Distracting pins were placed in C4 and C5 vertebral bodies and the disk space was distracted open. The posterior disk material was removed with a curette and then under the operating microscope with microdissection technique the posterior osteophytes were drilled down with high-speed bur and then removed with 2 mm Kerrison rongeur. The posterior longitudinal ligament was resected and the thecal sac and exiting C5 nerve roots were completely decompressed. The disk endplates were prepared with a curette and a bur, the space measured and a 5 mm height anatomically shaped NuVasive peek cage was selected. A bone marrow harvesting needle was tapped into the right anterior iliac crest with a stab incision and 2 cc of bone was harvested and mixed with 2 cc of ostium allograft. The graft material was packed inside the cage and the cage was impacted into the space. The distracting pin was removed from C4 and placed into C6 and the identical procedure was carried out at C5-6. Here, once again large posterior osteophytes which were indenting the thecal sac were removed with a high-speed bur and 2 mm Kerrison. The foramina were enlarged. The endplates were prepared and a 2nd 5 mm height graft was filled with graft material and the cage was impacted into the disk space. Distracting pin was removed from C5 and placed into C7 and the identical procedure was carried out at C6-7. The posterior osteophytes were removed. Ossification of the posterior longitudinal ligament was encountered in the midline and some of the ligament could not be dissected away from the thecal sac because of a risk of dural tear, but the thecal sac was completely decompressed. The endplates were prepared and a 3rd 5 mm height cage was placed after filling it with the graft material. Distracting pins were removed and the hole was filled with bone wax. The appropriate length NuVasive archon titanium plate was affixed to the spine and aeroplane pilot holes were made with an awl and 15 mm self-drilling screws were placed two at each level and directed medially. Fixed angled screws were used at C4, Thera-Band at C5, fixed angled at C6 and variable angle at C7. There was tight purchase of all the screws into the bone. Locking tabs in the plate were rotated into place to prevent screw backout. The wound was irrigated. FloSeal was utilized to assure hemostasis in the epidural space. All bleeding points were cauterized with bipolar cautery. A 10-Irish round Sven-Guzmán drain was left against the spine and brought out through a separate stab incision connected to a FRANKIE bulb, and the wound was closed with 3-0 Vicryl in the platysma, 3-0 Vicryl in deep dermis and Steri-Strips in the skin. Sterile dressing was applied. The patient was placed in a soft collar, awakened, extubated and brought to Recovery in stable condition. There were no complications. The estimated blood loss was 100 cc.
[2016-07-14] MEDS: ZONISAMIDE 50 MG PO SCH (20:30)
[2016-07-14] MEDS: Lactated Ringer's 1,000 ML IV SCH (20:53)
[2016-07-14] MEDS: Senna-Docusate 8.6-50 mg Tablet PO SCH (21:03)
[2016-07-14] MEDS: Fluticasone-Salmeterol 100-50 Inhaler INHALATION SCH (21:04)
[2016-07-14] MEDS: Clindamycin Inj 900 MG in IV Premix 1 EACH IV SCH (22:09)
[2016-07-15 00:44] VITALS: BP 100/61; PULSE 89; RESP 18; O2SAT 95
[2016-07-15] MEDS: Clindamycin Inj 900 MG in IV Premix 1 EACH IV SCH (05:57)
[2016-07-15 06:04] VITALS: BP 104/61; PULSE 81; RESP 18; O2SAT 95
[2016-07-15] MEDS: ZONISAMIDE 50 MG PO SCH (08:30)
[2016-07-15] MEDS ORDERED: Fluticasone 0.05% 15 Spray/2 Gm 16 Gm Nasal Spray NASAL SCH (08:30)
[2016-07-15] MEDS ORDERED: Tiotropium 18mcg/Cap 5 Capsule Inhaler Kit INHALATION SCH (08:30)
[2016-07-15] MEDS: Senna-Docusate 8.6-50 mg Tablet PO SCH (09:36)
[2016-07-15] MEDS: Lactated Ringer's 1,000 ML IV SCH (09:36)
[2016-07-15] MEDS: Fluticasone-Salmeterol 100-50 Inhaler INHALATION SCH (09:37)
[2016-07-15 09:40] VITALS: BP 115/68; PULSE 101; RESP 16; O2SAT 96
--- NOTE | 2016-07-15 10:54 | PCM.DISURG ---
Surgical Discharge Instruction Date of Service Jul 15, 2016 Dates of Hospitalization Date of Hospital Admission Jul 14, 2016 at 17:51 Providers Admitting Physician: Mode Ferguson MD Primary Care Physician: Robbie Jean MD Attending Physician: Mode Ferguson MD Discharge Diagnosis Discharge Diagnosis Status post C4-5, C5-6, & C6-7 anterior cervical discectomy and fusion, with cage 3, iliac crest bone marrow aspiration, & anterior cervical plating from C4 -7 Post Operative diagnosis Status post C4-5, C5-6, & C6-7 anterior cervical discectomy and fusion, with cage 3, iliac crest bone marrow aspiration, & anterior cervical plating from C4 -7 Additional Instructions Discharge Instructions Anterior Cervical Discectomy and Fusion What is my recovery like? The hospital stay is usually overnight. After the surgery, you might have a sore throat. This is very common due to the retraction (moving) of the esophagus and trachea. The sore throat usually resolves in 1-2 weeks. Drinking lots of fluids will help improve the symptoms. The cervical collar should be worn at night and for comfort only during the day. On your postoperative follow- up appointments, your Doctor will perform X-rays to see how well everything is healing. What are my restrictions? You should not lift anything heavier than five pounds. Avoid excessive movements of your neck until instructed specifically by your Doctor. Can I Shower? You may shower when you go home. You must remove the outside dressing on the 7th day after surgery, or change dressing as needed if soiled or saturated ( replacing new sterile gauze & water proof dressing) otherwise leave alone. The small pieces of tape (steri-strips) directly on top of the incision may get wet. The steri-strips will fall off on their own. Can I drive? No, you should not drive until specifically given permission from your Doctor in a follow up appointment. Most Patient's can drive in 2-3 weeks if they are not taking narcotic pain medications or muscle relaxers. You may ride in a car, but should avoid trips longer than two hours in duration. When can I return work / sports? Your Doctor will discuss your return to work with you on your first postoperative follow-up appointment. Most patients may return to work within 2 weeks for sedentary jobs. More physically demanding jobs may require 3-6 months of healing before such work can be considered. When should I call the doctor? You should call your Doctor or go to the Emergency Department if you develop chest pain, shortness of breath, a temperature greater than 101.5 F, oversedation, severe uncontrolled pain or weakness, loss of bowel or bladder function, choking, swelling, lots or drainage, pus discharge or constipation. Instructions Regarding Comfort & Pain Medication Use: During the recovery period , even with the use of pain medication, you may experience pain at the site of surgery. You may also have the same type of pain you had before surgery. Please use your pain scale as a guide for taking your pain medication. When your pain is greater than 4 out of 10, or when your pain reaches your personal tolerable level of pain, take your pain medication as prescribed. Use your pain medication on an 'as needed' basis. This means if your pain level is within your tolerable level of pain you DO NOT need to take the medication. As you get better, you will notice you can increase the time interval between doses and decrease the number of tablets you are taking, gradually taking less and less pain medication. Taking pain medication when it is not necessary (for example when your pain is tolerable or acceptable) can result in dangerous side effects and over- sedation. Signs and symptoms of over-sedation include: drowsiness, excessive sleeping, slow or difficult breathing, slurred speech, impaired thinking, confusion, impaired motor coordination. If you have any of these symptoms stop taking the medication and immediately contact your doctor. IF SYMPTOMS ARE LIFE THREATENING CALL 911. To decrease pain and swelling, frequently apply an ice pack for 20 min intervals with at least one hour off. When to take Acetaminophen for pain? If you don't have liver problems, allergies and/or Tylenol is not in your current pain medication. Take Extra Strength Tylenol 500mg 2 tabs by mouth every 6 hours as needed for pain. DO NOT EXCEED 8 TABS PER DAY. Follow Up Plan Follow Up Plan 1. Follow-up with physician operating room assistant in outpatient neurosurgical clinic in 1 week for wound check. 2. Follow-up with Primary Care Provider as scheduled or needed for treatment of Asthma. Follow-up Provider (F9): Gregorio Kuo PA-C Additional Information Attending Statement All documentation reviewed & orders authorized by Dale Phipps Scott PA-C Jul 15, 2016 10:54
--- NOTE | 2016-07-15 11:00 | PCM.DC.SUR ---
Discharge Summary Date of Service: Jul 15, 2016 Date of Hospital Admission: Jul 14, 2016 at 17:51 Date of Operation(s): 07/14/2016 Date of Discharge: 07/15/2016 Diagnosis at Time of Discharge Status post C4-5, C5-6, & C6-7 anterior cervical discectomy and fusion, with cage 3, iliac crest bone marrow aspiration, & anterior cervical plating from C4 -7 Problems: Operation C4-5, C5-6, & C6-7 anterior cervical discectomy and fusion, with cage 3, iliac crest bone marrow aspiration, & anterior cervical plating from C4-7 Brief History and Physical: Patient: Khoa Scott Date of : 1960 Visit Type: Pre Op Visit Date: 07/06/2016 09:45 AM This 56 year old female presents for Preop C4-7 ACDF, Cage, BMA and & Plating. History of Present Illness: 1. Preop C4-7 ACDF, Cage, BMA, & Plating Khoa scott is a 56 year old female referred by Neurologist Dr. Channing Bradford MD with Primary Care Provider (PCP) Dr. Parrish Jean DO, who presents today's date 07/06/2016 for a rescheduled surgery & repeat preoperative type of appointment concerning the decision for surgery involving C4-5, C5-6, & C6-7 anterior cervical discectomy and fusion, with cages, iliac crest bone marrow aspiration, & anterior cervical plating from C4-7 secondary to a diagnosis of cervical stenosis of the spinal canal with related complaints of severe, intractable, and debilitating headache, neck spasm referred to the lower back, & pain radiating to the bilateral shoulders, upper & lower extremities worse on the right side with numbness, paresthesias, dysesthesias, cramping, & weakness; including related difficulty with ambulation, balance, coordination, fine motor manipulation, unsteadiness of gait, & bladder spasticity. The patient was last seen for preoperative appointment on 06/03/2016, after which she developed acute sinusitis with shortness of breath, asthma exacerbation, & consequently her previous surgery was canceled. The patient was then treated by her PCP & medically authorized to reschedule for surgery. The patient was last seen by Dr. Mode Ferguson M.D. on 05/19/2016 presenting with symptomatic cervical myeloradiculopathy as before. She was seen prior for Neurosurgical consultation by Gregorio Kuo PA-C on 05/01/2016 with chief complaints of constant frequency taking & throbbing headache, neck spasm referred to the lower back, & pain radiating diffusely to the bilateral shoulders, upper & lower extremities worse on the right side with numbness, paresthesias, dysesthesias, cramping, & weakness; aggravated by fixed prolonged cervical flexion or extension positioning & improved only transiently with rest , activity modification, medical management & therapeutic modalities; worsening over the last several years. The patient also complains a related difficulty with ambulation, balance, coordination, fine motor manipulation, unsteadiness of gait, & bladder spasticity. Incidentally, the has also received interventional treatment from Dr. Bart Schumacher M.D., PhD for lumbar facet arthropathy, sacroiliitis, & piriformis syndrome with limited relief. According to Dr. Mode Ferguson M.D. the patient has an MRI spine that demonstrated cervical spondylosis with disc & osteophyte protrusion causing spinal stenosis with spinal cord compression at C4-5, C5-6, & C6-7. He also reported bilateral foraminal narrowing at multiple levels. Consequently the patient has symptomatic cervical spinal stenosis causing myelopathy; therefore neurosurgical decompression, fusion, & instrumented stabilization is indicated. Dr. Ferguson & the patient discussed all the risks and benefits associated with procedure as well as reasonable expectations with regards to surgical outcomes & the patient elected to proceed with surgery as planned. The patient denies any related complete or acute loss of control of bowel or bladder function, saddle paresthesia or anesthesia. The patient has a reported pertinent past medical, surgical, family & social history for right shoulder surgery for rotator cuff repair & acromioplasty, tubal ligation (involving difficult postoperative anesthesia) , & lump removal, asthma (controlled), thyroid dysfunction, osteoarthritis, fibromyalgia, history of diarrhea/constipation, nocturia, stress incontinence, chronic joint pain, & frequent headaches with no other than above known positive history &/or review of all other organ systems. The patient's related complaints have been a serious detriment to their happiness and activities of daily living. Having failed conservative treatment the patient presents today for their decision for surgery appointment involving C4-5, C5-6, & C6-7 anterior cervical discectomy and fusion, with cages, iliac crest bone marrow aspiration, & anterior cervical plating from C4-7 for treatment of cervical stenosis of the spinal canal; related to severe, intractable, and debilitating headache, neck spasm referred to the lower back, & pain radiating to the bilateral shoulders, upper & lower extremities worse on the right side with numbness, paresthesias, dysesthesias, cramping, & weakness; including related difficulty with ambulation, balance, coordination, fine motor manipulation, unsteadiness of gait, & bladder spasticity. The procedure is scheduled to be performed by Dr. Mode Ferguson M.D. on 07/14/2016 ANESTHESIA NOTE: Anesthesia preoperative consultation requested for review of the patient's PCP office medical clearance for surgery. The patient reports significant nausea with narcotics although she has a fatty liver & elevated liver enzymes therefore low-dose oxycodone will be used & treated with antiemetics as needed. She will also be evaluated postoperatively by Respiratory Therapy because of mild regular asthma. Problem List: Problem Description Asthma exacerbation Medical/Surgical/Interim History Reviewed, no change. Last detailed document date:07/06/2016. Family History: Reviewed, no changes. Last detailed document date:07/06/2016. Social History (Reviewed, updated) 07/06/2016 Tobacco use reviewed. Preferred language is Pashto. 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 Smoking status: Former smoker. Smoking Status Use Status Type Smoking Status Years Used Total Pack Years yes Cigarette Former smoker Cessation Type Date Quit Longest Tobacco Free Cessation Method Cigarette 04/12/2012 CAFFEINE The patient uses caffeine: soda and coffee.. Allergies: Ingredient Reaction Medication Name Comment SHELLFISH DERIVED lips/mouth itchy AMPICILLIN hives, rash Reviewed, no changes. Review of Systems System Neg/Pos Details Neuro Positive Headache. Constitutional Negative Chills and fever. GI Negative Abdominal pain, constipation, diarrhea, nausea and vomiting. MS Negative Back pain, bone/joint symptoms and muscle weakness. Valentino/Lymph Negative Blood clots. Neuro Negative Dizziness and seizures. Negative Dysuria, urge incontinence and urinary incontinence. Respiratory Negative Dyspnea, apnea and wheezing. Eyes Negative Double vision and vision loss. Psych Negative Anxiety and depression. Integumentary Negative Mrsa and rash. Endocrine Negative Weight gain and weight loss. Cardio Negative Chest pain, irregular heartbeat/palpitations, leg swelling and pacemaker. ENMT Negative Hearing loss. Vital Signs Height Time ft in cm Last Measured Height Position % 9:34 AM 5.0 1.00 154.94 05/19/2016 Weight/BSA/BMI Time lb oz kg Context % BMI kg/m2 BSA m2 9:34 AM 150.00 68.039 dressed with shoes 28.34 Blood Pressure Time BP mm/Hg Position Side Site Method Cuff Size 9:34 AM 115/68 sitting left wrist automatic adult Temperature/Pulse/Respiration Time Temp F Temp C Temp Site Pulse/min Pattern Resp/ min 9:34 AM 98.6 37.0 88 regular Pain Scale Time Pain Score Method 9:34 AM 6/10 Numeric Pain Intensity Scale Measured By Time Measured by 9:34 AM German Davila MA Screening Summary:o Pain is described as 6/10. Evaluated pain score with Numeric Pain Intensity Scale. The following were reviewed: tobacco use, alcohol use and caffeine use Physical Exam Exam Findings Details Comments WD/WN, female who is AO x 3, cooperative,& appears to be in NAD w/ language & speech that is intact & fluent. There is no evidence of recent or remote memory impairment. The patient's knowledge is appropriate for age & level of education w/ a pleasant affect & euthymic mood. Ambulates w/ no difficulty. NC/AT, PERRL, EOMI, w/o facial droop, hearing grossly intact, nostrils patent, oral cavity and pharynx normal. Neck supple, w/o LAD or thyromegaly. Heart reveals RRR w/o audible murmurs Lungs CTAB Abdomen is NT/ND Cervical range of motion is moderately restricted in all directions. Neck nontender to palpation. Motor strength 5/5 bilateral deltoid, bicep, tricep, hand business area director, hand intrinsics. Reflexes 2+ bilateral biceps, triceps, brachioradialis, knee jerks, ankle jerks. No ankle clonus. Negative Ortiz's reflex. Sensation diminished pinprick in the radial aspect of the forearms and thumb and first 2 fingers of both hands bilaterally. Assessment/Plan # Detail Type Description 1. Assessment Cervical stenosis of spinal canal (M48.02). 2. Assessment Preoperative examination (Z01.818). Patient Plan We including your Attending Surgeon have discussed the risks and benefits associated your scheduled procedure which you have verbally acknowledged understanding including but not limited to the possibility of an outcome that we are unable to predict or was not mentioned. 1. You are scheduled for a C4-5, C5-6, & C6-7 anterior cervical discectomy and fusion, with cages, iliac crest bone marrow aspiration, & anterior cervical plating with Dr. Mode Ferguson M.D. at [facility] on 07/14/2016. 2. Check in time is 11:00 AM. Also please ignore instructions below if told otherwise by your preadmission nurse or if you do not take the medications listed below. 3. Nothing to eat after midnight the night before surgery. You may take all of your "approved" medications with small sips of water. Remember to take your a.m. hypertension medication if it is a beta jolene and ends in "olol. Otherwise ask your doctor if you need to hold your a.m. hypertension medication. 4. No aspirin, ibuprofen, Naprosyn, or other NSAIDs starting 7 days prior to surgery. 5. Please stop Warfarin/Coumadin or other blood thinners such as Plavix, Aggrenox, or Xarelto 7 days prior to your surgical procedure and follow specific instructions from your prescribing provider. 6. Please stop Lovenox bridging in the morning one day prior to procedure. 7. Please stop Suboxone/Buprenorphine at least 4 days prior to procedure. 8. Go to the hospital today to get her preoperative testing done. Take the order form to the surgery desk on the second floor of the hospital, [facility] (main entrance next to the emergency entrance). I will notify you if there is any test results that require further workup prior to surgery. 9. Follow the instructions you were given today, use the cleansing cloths the night before as well as the morning of her surgery. 10. If you are prescribed inhalers, CPAP or BiPAP machines you use at home bring along with you to the hospital. 11. ONLY If you take medications for Diabetes: If you have an insulin pump continue lowest (typically night-time) basal rate into the a.m. If you do not have a pump check h your a.m. blood sugar and hold insulin if BS less than 100. If you are taking long-acting, intermediate acting (NPH) or 70/30 preparation : Take half on day of procedure. If you are taking ultra long-acting insulin such as glargine, Lantus either at night or in the a.m. continue as scheduled ( including day of surgery). If you take short acting regular insulin (insulin not delivered via pump) discontinue on day of procedure. 12. Please call if you have any questions before your surgery: [phone]. Today's instructions/counseling include(s) Pre-operative instructions given to the patient and or legal direct sales representative(s) orally and in writing. 13. Our office will contact you if there are any test results that require further workup prior to surgery. Provider Plan We including your Attending Surgeon have discussed the risks and benefits associated your scheduled procedure which you have verbally acknowledged understanding including but not limited to the possibility of an outcome that we are unable to predict or was not mentioned. 1. You are scheduled for a C4-5, C5-6, & C6-7 anterior cervical discectomy and fusion, with cages, iliac crest bone marrow aspiration, & anterior cervical plating with Dr. Mode Ferguson M.D. at [facility] on 07/14/2016. 2. Check in time is 11:00 AM. Also please ignore instructions below if told otherwise by your preadmission nurse or if you do not take the medications listed below. 3. Nothing to eat after midnight the night before surgery. You may take all of your "approved" medications with small sips of water. Remember to take your a.m. hypertension medication if it is a beta jolene and ends in "olol. Otherwise ask your doctor if you need to hold your a.m. hypertension medication. 4. No aspirin, ibuprofen, Naprosyn, or other NSAIDs starting 7 days prior to surgery. 5. Please stop Warfarin/Coumadin or other blood thinners such as Plavix, Aggrenox, or Xarelto 7 days prior to your surgical procedure and follow specific instructions from your prescribing provider. 6. Please stop Lovenox bridging in the morning one day prior to procedure. 7. Please stop Suboxone/Buprenorphine at least 4 days prior to procedure. 8. Go to the hospital today to get her preoperative testing done. Take the order form to the surgery desk on the second floor of the hospital, [facility] (main entrance next to the emergency entrance). I will notify you if there is any test results that require further workup prior to surgery. 9. Follow the instructions you were given today, use the cleansing cloths the night before as well as the morning of her surgery. 10. If you are prescribed inhalers, CPAP or BiPAP machines you use at home bring along with you to the hospital. 11. ONLY If you take medications for Diabetes: If you have an insulin pump continue lowest (typically night-time) basal rate into the a.m. If you do not have a pump check h your a.m. blood sugar and hold insulin if BS less than 100. If you are taking long-acting, intermediate acting (NPH) or 70/30 preparation : Take half on day of procedure. If you are taking ultra long-acting insulin such as glargine, Lantus either at night or in the a.m. continue as scheduled ( including day of surgery). If you take short acting regular insulin (insulin not delivered via pump) discontinue on day of procedure. 12. Please call if you have any questions before your surgery: [phone]. Today's instructions/counseling include(s) Pre-operative instructions given to the patient and or legal direct sales representative(s) orally and in writing. 13. Our office will contact you if there are any test results that require further workup prior to surgery. The patient's history and examination as well as radiological findings were reviewed with Mode Ferguson M.D. and conveyed the patient in detail. The findings are consistent with cervical stenosis of the spinal canal and are most likely the cause of the patient's severe, intractable, and debilitating headache, neck spasm referred to the lower back, & pain radiating to the bilateral shoulders, upper & lower extremities worse on the right side with numbness, paresthesias, dysesthesias, cramping, & weakness; including related difficulty with ambulation, balance, coordination, fine motor manipulation, unsteadiness of gait, & bladder spasticity. The patient has failed extensive conservative treatment for this condition. The treatment options were discussed with the patient. The options include attempt to live with the condition, reattempt conservative treatment, try a pain management intervention / injection or consider a surgical intervention. We are not extremely optimistic that further conservative treatment, pain management intervention and/or injection will adequately resolve the patient's symptoms of severe, intractable, and debilitating headache, neck spasm referred to the lower back, & pain radiating to the bilateral shoulders, upper & lower extremities worse on the right side with numbness, paresthesias, dysesthesias, cramping, & weakness; including related difficulty with ambulation, balance, coordination, fine motor manipulation, unsteadiness of gait, & bladder spasticity. Therefore we recommend C4-5, C5-6, & C6-7 anterior cervical discectomy and fusion, with cages, iliac crest bone marrow aspiration, & anterior cervical plating from C4-7. The patient was provided/offered educational materials pertaining to their diagnosis and the above discussed procedure. We discussed the risks and benefits associated with this surgery. A spine model was used to explain the nature of this type of surgery. The risk of the required anesthesia was also mentioned including but not limited to organ failure such as heart attack, pneumonia and stroke even . The risk of this type of surgery was also mentioned. Including but not limited to an unsuccessful outcome, residual symptoms, odynophagia, dysphasia or sore throat, referred or radiating posterior spinal myofascial inflammatory pain or spasm, post operative instability, instrumentation failure, sensory changes, blood loss, blood clots, wound infection, spinal cord or nerve damage, CSF or lymph leak, damage to neighboring structures such as the recurrent laryngeal nerve, perforation of the esophagus or trachea, pseudoarthrosis, adjacent level disease , contraindication to MRI, Gillian's Syndrome, vision loss, voice change, resulting in temporary or permanent dysfunction, even disability, paralysis, and . The recovery of this type of surgery was also mentioned. This includes but is not limited to reasonable expectations for the treatment of myelopathy involving the surgical decompression of the cervical spinal cord; which will stop the progression of the patient's condition but cannot guarantee improvements in any associated physical complaints. The patient verbalized understanding all the risks and benefits, knowing that it is impossible to predict or guarantee every surgical outcome; and would like to proceed with the above discussed procedure anyways. Surgery is scheduled for 07/14/2016 The standard [facility] preoperative screening tests, medicine restrictions, and logistical protocols apply. Any preoperative testing is within normal limits to undergo the above discussed procedure unless otherwise noted in the medical record. ANESTHESIA NOTE: Anesthesia preoperative consultation requested for review of the patient's PCP office medical clearance for surgery. The patient reports significant nausea with narcotics although she has a fatty liver & elevated liver enzymes therefore low-dose oxycodone will be used & treated with antiemetics as needed. She will also be evaluated postoperatively by Respiratory Therapy because of mild regular asthma. Medications (added, continued or stopped this visit): Start Date Medication Directions Stop Date 06/11/2016 Aerochamber MV spacer Use with your albuterol inhaler 06/11/2016 benzonatate 200 mg capsule take 1 capsule by oral route 3 times every day as needed for cough cetirizine 10 mg tablet take 1 tablet by oral route every day 06/03/2016 docusate sodium 250 mg capsule take 1 capsule by oral route 2 times every day Dulera 200 mcg-5 mcg/actuation HFA aerosol inhaler inhale 2 puff by inhalation route 2 times every day in the morning and evening fluoxetine 10 mg capsule take 1 capsule by ORAL route every day fluticasone 50 mcg/actuation nasal spray,suspension spray 1 spray by intranasal route every day in each nostril 08/16/2015 gabapentin 300 mg capsule take 3 capsule by oral route 2 times every day levothyroxine 50 mcg tablet take 1 tablet by oral route every day Maxalt 10 mg tablet take 1 tablet by oral route once, may repeat at 2 hour intervals; do not exceed 30 mg in 24 hours montelukast 10 mg tablet take 1 tablet by oral route every day in the evening 06/15/2016 Garfield 10 mg-325 mg tablet take 0.5-2 tablet(s) by oral route every 4 - 6 hours as needed for pain 01/03/2016 ondansetron 8 mg disintegrating tablet take 1 tablet by oral route every 8 hours as needed for nausea 06/15/2016 oxycodone 5 mg tablet take 0.5-2Tablet(s) by oral route every 4-6 hours as needed for pain ProAir HFA 90 mcg/actuation aerosol inhaler inhale 2 puff by inhalation route every 4 - 6 hours as needed Refresh Plus 0.5 % eye drops in a dropperette use as needed 10/25/2015 Robaxin-750 750 mg tablet Take 1 tablet orally three times a day Spiriva with HandiHaler 18 mcg and inhalation capsules inhale 1 capsule by inhalation route every day 05/20/2016 sumatriptan 6 mg/0.5 mL subcutaneous pen injector inject 0.5 milliliter by subcutaneous route once once; may repeat in 1 hour if pain returns /increases in severity; (max2 doses/24 hours) topiramate 50 mg tablet take 1 tablet by oral route 2 times every day 06/15/2016 Valium 5 mg tablet take 1 - 2 Tablet by oral route every 8 hours for spasm 01/03/2016 zonisamide 25 mg capsule take 2 Capsule by oral route 2 times every day Counseling/Educational Factors: Counseling / educational factors reviewed. Counseling / educational factors reviewed. This is a visit of 60 minutes. 50 minutes were spent counseling. The patient was checked out at 10:11 AM. This document may have been created using voice recognition software or other electronic means and may contain inadvertent fax machine repairer errors. Provider: Gregorio POND 07/06/2016 10:23 AM Document generated by: Gregorio Kuo 07/06/2016 10:23 AM CC Providers: Parrish Jean [address] [place] [address] [address] [place] [address] w cristobal clayton s Kyra murillo g Hospital Course: Hospital Course: The patient was admitted through same day surgery and subsequently underwent a C4-5, C5-6, & C6-7 anterior cervical discectomy and fusion, with cage 3, iliac crest bone marrow aspiration, & anterior cervical plating from C4-7. The patient tolerated the procedure well. The patient was then was transferred to PACU and then to the [facility] floor. The patient was admitted for postoperative pain control, PT/OT, supervised for Asthma co-morbidities with Respiratory Therapy, inpatient nurse monitoring, continuous pulse oximetry, and discharge planning. The Patient's overnight course was within normal limits. Currently the patient has complaints of mild-moderate surgical site pain, & posterior referred myofascial inflammatory pain/spasm medically controlled, and postoperative analgesics & muscle relaxant. There is significant improvement of the patient' s residual related cervical spinal stenosis symptoms. The patient denies headache, severe sore throat or dysphagia, chest pain, shortness of breath, abdominal pain, nausea, vomiting, constipation, diarrhea, or any new onset &/or location of pain, weakness or paresthesias aside from the surgical site. PHYSICAL EXAM This is a well developed, well nourished, female who is alert, cooperative, and appears to be in no acute distress with a pleasant affect & euthymic mood. Exam of the head is normocephalic. PERRL, EOMI, without facial droop, hearing grossly intact, nostrils patent, oral cavity and pharynx normal. Voice is within normal limits Exam or the heart reveals regular rate and rhythm without audible murmurs The lungs are clear to auscultation bilaterally. The abdomen is non- tender and non-distended. Exam of the anterior cervical surgical wound reveals that it is clean, dry, and intact; without signs of infection, inflammation, and/or hematoma. There will be a rate of output less than 30 mL from the surgical drain in a 8 hour period prior to. Gross exam of the extremities reveals strength & sensation are grossly intact within the patient's normal baseline limits except improve diminished sensations in bilateral upper extremities. The patient was eventually able to get out of bed and ambulate within acceptable limits. Therapy services made recommendations for disposition. Flatus was appreciated and the patient was able to void without significant difficulty. The pain was gradually under control. The patient was afebrile on discharge. The patient's incision(s) was clean, dry and intact. The dressing was changed to the Surgeon's specifications. The the rate of output from the wound drain will be less then 30cc's in an 8 hour period prior to discharge and therefore the drain will then be removed. The patient progressed well with rehabilitation and was subsequently discharged to home in stable condition. The patient verbally affirmed understanding when given clear instruction regarding the postoperative care and follow-up including but not limited to seeking immediate medical attention for chest pain, oversedation, shortness of breath, a temperature greater than 101.5 F, severe uncontrolled pain or weakness , loss of bowel or bladder function, choking, lots or drainage, pus discharge or constipation. All questions were answered. Disposition: Home in stable condition. Follow-up Plan: Follow-up with physician cleaner assistant in outpatient neurosurgical clinic in 1 week for wound check. ([Refresh Plus]) 1-2 DRP AFFECT_EYE PRN (Reported) Albuterol HFA (Proair HFA) 8.5 Gm Hfa.aer.ad 2 PUFFS INHALATION Q4H PRN PRN PRN (Reported) Benzonatate (Benzonatate) 200 Mg Capsule 200 MG PO TID PRN PRN PRN (Reported) Cetirizine HCl (24Hour Allergy) 10 Mg Tablet 10 MG PO DAILY (Reported) Diazepam (Valium) 5 Mg Tablet 5-10 MG PO TID PRN PRN PRN (Reported) Docusate Sodium (Docusate Sodium) 250 Mg Capsule 250 MG PO BID PRN PRN For Constipation (Reported) Fluoxetine (Fluoxetine) 10 Mg Capsule 10 MG PO DAILY (Reported) Fluticasone Propionate (Flonase Allergy Relief) 50 Mcg/Actuation [place].susp 9.9 ML NS DAILY (Reported) Gabapentin (Gabapentin) 300 Mg Capsule 900 MG PO BID (Reported) Levothyroxine (Levothyroxine) 50 Mcg Tablet 50 MCG PO DAILY (Reported) Mometasone/Formoterol (Dulera 100 Mcg/5 Mcg Inhaler) 13 Gm Hfa.aer.ad 2 PUFFS IH BID (Reported) Montelukast (Montelukast) 10 Mg Tablet 10 MG PO HS (Reported) Ondansetron (Zofran) 8 Mg Tablet 8 MG PO Q8H PRN PRN For Nausea (Reported) Rizatriptan (Maxalt) 10 Mg Tablet 10 MG PO PRN (Reported) MR IN 2HR INTERVALS Sumatriptan Succinate (Imitrex) 6 Mg/0.5 Ml Pen.injctr 6 MG SQ PRN (Reported) Tiotropium [place] (Spiriva) 18 Mcg Cap.w.dev 18 MCG IH DAILY (Reported) Zonisamide (Zonisamide) 50 Mg Capsule 50 MG PO BID (Reported) oxyCODONE (oxyCODONE) 5 Mg Capsule 2.5-10 MG PO Q4H PRN PRN For Pain (Reported) Discharge Medications: Prescribed during the patient's preoperative appointment. Attending Statement: All documentation reviewed & orders authorized by Dale Phipps Scott PA-C Jul 15, 2016 11:00
== END 2016-07-15 13:25 | disposition home or self-care (01) | DRG 472 ==
LOC: SAS 10:48 → OSC 17:51
PROVIDERS: ADMIT Neurological Surgery; ATTEND Neurological Surgery
PROC: 0RG20A0 Fusion of 2 or more Cervical Vertebral Joints with Interbody Fusion Device, Anterior Approach, Anterior Column, Open Approach (ICD-10-PCS; 2016-07-14)
PROC: 0RG1070 Fusion of Cervical Vertebral Joint with Autologous Tissue Substitute, Anterior Approach, Anterior Column, Open Approach (ICD-10-PCS; 2016-07-14)
PROC: 07DR3ZZ Extraction of Iliac Bone Marrow, Percutaneous Approach (ICD-10-PCS; 2016-07-14)
PROC: 0RT30ZZ Resection of Cervical Vertebral Disc, Open Approach (ICD-10-PCS; principal; 2016-07-14 13:00)
DX: M48.02 Spinal stenosis, cervical region (principal); M50.021 Cervical disc disorder at C4-C5 level with myelopathy; M50.022 Cervical disc disorder at C5-C6 level with myelopathy; M50.023 Cervical disc disorder at C6-C7 level with myelopathy; J45.909 Unspecified asthma, uncomplicated; Z87.891 Personal history of nicotine dependence